=== PATIENT | male | born 1970 | race Two or more races ===

== ENCOUNTER 2017-02-05 16:36 | Inpatient (IN) | payer MEDICAID ==
[~2017-02-05] VITALS: Ht 180.3 cm; Wt 80.7 kg
--- NOTE | 2017-02-05 17:12 | NUR ---
[id number] FOR ETOH, PT STS "I HAD 1 LITR OF VODKA," PT HAS NO OTHER COMPLAINTS. PT ASSISTED TO ED BED 14, NAD. RR EVEN AND UNLABROED. PLACED ON CONT CARDIAC AND POX MOITORING. ON CONT MONITORING
[2017-02-05] MEDS ORDERED: CHLORDIAZEPOXIDE HCL 25 MG CAPSULE PO ONE (18:30)
--- NOTE | 2017-02-05 18:30 | NUR ---
DEBI PULLED FROM [id number] - PHARMACY AWARE.
[2017-02-05] MEDS ORDERED: LORAZEPAM 1 MG TABLET ONE (19:17)
[2017-02-05] MEDS ORDERED: LORAZEPAM 1 MG TABLET PO ONE (19:30)
--- NOTE | 2017-02-05 20:15 | NUR ---
Patient is resting comfortably in bed with eyes closed. Easily aroused. VSS
--- NOTE | 2017-02-05 22:20 | NUR ---
Patient is resting comfortably in bed with eyes closed. Easily aroused. VSS
[2017-02-05] MEDS ORDERED: IBUPROFEN 600 MG TABLET PO ONE ×2 (22:30→23:16)
[2017-02-05] MEDS ORDERED: LORAZEPAM INJ 2 MG/ML VIAL IVP ONE (22:30)
[2017-02-05] MEDS ORDERED: IV NS 0.9% 1,000 ML BAG IV ONE (22:30)
[2017-02-05] MEDS ORDERED: LORAZEPAM INJ 2 MG/ML VIAL ONE (23:15)
--- NOTE | 2017-02-05 23:29 | NUR ---
TEXTED DR. LANDRY FOR MRI APPROVAL.
--- NOTE | 2017-02-05 23:34 | NUR ---
MRI APPROVED BY DR. LANDRY.NO COOLER CONVEYOR LOADER AVAILABLE AFTER 10 PM.
--- NOTE | 2017-02-05 23:36 | NUR ---
CALLED RETAIL LEADER DIRECTOR OF COLLECTIONS AND ARCHIVES NO RESPONSE YET.
[2017-02-05 23:44] LABS: BASOPHILS # (AUTO) 0.1 /CMM (0.0-0.2); BASOPHILS % (AUTO) 1.3 % (0.0-2.0); EOSINOPHILS % (AUTO) 0.3 % (0.0-6.0); HEMATOCRIT 43 % (39-51); LYMPHOCYTES # (AUTO) 2.5 /CMM (0.8-4.8); LYMPHOCYTES % (AUTO) 36.1 % (20.0-44.0); MEAN CORPUSCULAR HEMOGLOBIN 32 PG (26.0-33.0); MEAN CORPUSCULAR HGB CONC 35 g/dl (31.0-36.0); MEAN CORPUSCULAR VOLUME 93 fL (80-96); MONOCYTES # (AUTO) 0.4 /CMM (0.1-1.30); MONOCYTES % (AUTO) 6.2 % (2.0-12.0); NEUTROPHILS # (AUTO) 3.9 /CMM (1.8-8.9); NEUTROPHILS % (AUTO) 56.1 % (43.0-81.0); PLATELET COUNT (AUTO) 183 /CMM (150-450); RDW COEFFICIENT OF VARIATION 12.5 (11.5-15.0); RED BLOOD CELL COUNT(AUTO) 4.68 MIL/uL (4.5-6.0); WHITE BLOOD COUNT (AUTO) 6.9 K/uL (4.3-11.0)
--- NOTE | 2017-02-05 23:47 | NUR ---
CALLED ER TOLD THEM NO TUFTER OPERATOR AVAILABE AFTER 10PM. ER AGREED TOMORROW 02/06/17 AT 8.30 AM. TEXTED TUFTER OPERATOR JOSELITO TO BE IN AT 8.30 AM. 02/06 .
[2017-02-05 23:52] LABS: INR 0.9 (0.87-1.13); PROTHROMBIN TIME 9.4 SECS (9.5-12.7)
[2017-02-06 00:06] LABS: CALCIUM, SERUM 8.3 mg/dL (8.5-10.1); CREATININE 0.7 mg/dL (0.6-1.3); POTASSIUM 3.4 mmol/L (3.5-5.1)
[2017-02-06 00:12] LABS: ALBUMIN 3.6 g/dL (3.4-5.0); BILIRUBIN,DIRECT 0.2 mg/dL (0.0-0.2); BILIRUBIN,TOTAL 0.9 mg/dL (0.2-1.0); SALICYLATE 2.2 mg/dL (2.8-20.0); TOTAL PROTEIN, SERUM 7.2 g/dL (6.4-8.2)
[2017-02-06] MEDS ORDERED: POTASSIUM CHLORIDE 20 MEQ TAB.PRT.SR PO ONE (00:30)
[2017-02-06] MEDS ORDERED: HYDROCODONE/APAP 5/325MG 1 EACH TABLET PO PRN (01:00)
[2017-02-06] MEDS ORDERED: ACETAMINOPHEN 325 MG TABLET PO PRN (01:00)
[2017-02-06] MEDS ORDERED: Z GUARD REMEDY 2 OZ OINT TP PRN (01:00)
[2017-02-06] MEDS ORDERED: ZOLPIDEM TARTRATE 5 MG TABLET PO PRN (01:00)
[2017-02-06] MEDS ORDERED: ONDANSETRON HCL/PF 4 MG/2 ML VIAL IVP PRN (01:00)
[2017-02-06] MEDS ORDERED: MAG HYDROX/AL HYDROX/SIMETH 30 ML UDC PO PRN (01:00)
[2017-02-06] MEDS ORDERED: MAGNESIUM HYDROXIDE 30 ML UDC PO PRN (01:00)
[2017-02-06 01:20] LABS: APPEARANCE,URINE CLEAR (CLEAR); BILIRUBIN,URINE NEGATIVE (NEGATIVE); BLOOD, URINE 2+ Ery/uL (NEGATIVE); COLOR,URINE YELLOW (YELLOW); KETONES,URINE NEGATIVE (NEGATIVE); LEUKOCYTE ESTERASE ,URINE NEGATIVE (NEGATIVE); NITRITE, URINE NEGATIVE (NEGATIVE); PH,URINE 5.5 (5.0-8.0); PROTEIN,URINE 2+ mg/dl (NEGATIVE); UGLUCOSE NEGATIVE (NEGATIVE); UROBILINOGEN,URINE 0.2 EU/dL (0.2)
--- NOTE | 2017-02-06 01:23 | NUR ---
TELE 310-2
[2017-02-06 01:24] LABS: BACTERIA,URINE Moderate /HPF (None Seen); WBC,URINE 0-2 /HPF (0-3)
[2017-02-06 01:25] LABS: HYALINE CASTS, URINE Few /LPF (None Seen); SQUAMOUS EPITHELIAL CELL,UR Few /HPF (None Seen)
--- NOTE | 2017-02-06 01:31 | NUR ---
REPORT GIVEN TO CHARGE NURSE, PT RN WILL BE NHAN. PT RESTING COMFORTABLY AT THIS TIME, EASILY AWAKENED TO VOICE. 18G RT AC WITH NS 1 LITER RUNNING. VSS, PT TRANSFERRED TO TELE 310 #2 VIS LUCIE ON MONITOR. ABNORMAL LABS REPORTED TO RN.
--- NOTE | 2017-02-06 02:15 | NUR ---
RN OPENING NOTES RECEIVED PATIENT IN STABLE CONDITION FROM ER. ALERT AND ORIENTED X4. PATIENT STATES "I HAD LITER OF VODKA". ALCOHOL 243. K 3.4, KDUR GIVEN IN ER. NO C/O PAIN AT THIS TIME. BS X4. RESPIRATIONS EVEN AND UNLABORED. NO SOB NOTED. TELE MONITOR IS IN PLACE, SINUS TACHYCARDIA 113 BPM. IV ACCESS ON RAC PATENT AND INTACT. FLUSHING WELL WITH NS. AWATING FOR MD ORDER. BED IN LOW AND LOCKED POSITION. SIDE RAILSX2. CALL LIGHT WITHIN EASY REACH. CONTINUE TO MONITOR AND ASSESS DURING THE SHIFT.
[2017-02-06] MEDS: LORAZEPAM INJ 2 MG/ML VIAL IV PRN ×5 (02:47→21:26)
[2017-02-06] MEDS: IV NS 0.9% 1,000 ML IV PRN ×2 (02:48→21:23)
[2017-02-06 03:00] VITALS: BP 163/113
[2017-02-06 06:29] LABS: BASOPHILS % (AUTO) 0.3 % (0.0-2.0); EOSINOPHILS % (AUTO) 0.4 % (0.0-6.0); HEMATOCRIT 42 % (39-51); HEMOGLOBIN 14.1 g/dL (13.5-17.5); LYMPHOCYTES # (AUTO) 1.5 /CMM (0.8-4.8); LYMPHOCYTES % (AUTO) 27.4 % (20.0-44.0); MEAN CORPUSCULAR HEMOGLOBIN 31 PG (26.0-33.0); MEAN CORPUSCULAR HGB CONC 34 g/dl (31.0-36.0); MEAN CORPUSCULAR VOLUME 92 fL (80-96); MONOCYTES # (AUTO) 0.4 /CMM (0.1-1.30); MONOCYTES % (AUTO) 6.6 % (2.0-12.0); NEUTROPHILS # (AUTO) 3.6 /CMM (1.8-8.9); NEUTROPHILS % (AUTO) 65.3 % (43.0-81.0); PLATELET COUNT (AUTO) 157 /CMM (150-450); RDW COEFFICIENT OF VARIATION 12.7 (11.5-15.0); RED BLOOD CELL COUNT(AUTO) 4.52 MIL/uL (4.5-6.0); WHITE BLOOD COUNT (AUTO) 5.5 K/uL (4.3-11.0)
[2017-02-06 06:33] VITALS: BP 163/113
[2017-02-06 06:41] LABS: CALCIUM, SERUM 8.3 mg/dL (8.5-10.1); CREATININE 0.7 mg/dL (0.6-1.3); POTASSIUM 3.5 mmol/L (3.5-5.1)
--- NOTE | 2017-02-06 07:05 | NUR ---
RN CLOSING NOTES PATIENT IS SLEEPING IN BED, EASY TO AROUSE. RESPIRATIONS EVEN AND UNLABORED. NO SOB NOTED. TELE MONITOR IS IN PLACE, SINUS TACHYCARDIA 111 BPM. IV ACCESS ON RAC PATENT AND INTACT, INFUSING NS AT 75 ML/HR. PICTURES TAKEN AND PLACED IN THE CHART. ALL NEEDS ARE MET AND MEDICATIONS GIVEN. BED IN LOW AND LOCKED POSITION. SIDE RAILSX2. CALL LIGHT WITHIN EASY REACH. WILL ENDORSE TO RN DAY SHIFT FOR CONTINUITY OF CARE.
--- NOTE | 2017-02-06 07:35 | NUR ---
RN OPENING NOTES RECEIVED PT. IN BED A&OX4. BREATHING UNLABORED AND EVENLY ON ROOM AIR WITHOUT SOB. NO S/S OF ACUTE DISTRESS. IV ACCESS ON RIGHT ANTECUBITAL SITE PATENT WITH NORMAL SALINE FLUSH. BED IS IN LOWEST AND LOCKED POSITION. 2 SIDE RAILS UP, AND INSTRUCTED PT. TO USE CALL LIGHT FOR ASSISTANCE. ALL NEEDS MET. WILL CONTINUE TO ASSESS AND MONITOR.
[2017-02-06 08:00] VITALS: BP 160/94
[2017-02-06] MEDS ORDERED: GADOVERSETAMIDE 2.5 MMOL/5 ML VIAL IJ ONE (10:43)
[2017-02-06] MEDS ORDERED: GADOVERSETAMIDE 5 MMOL/10 ML VIAL IJ ONE (10:43)
--- NOTE | 2017-02-06 10:56 | NUR ---
Social service consult requested by Dr. Cao for alcohol abuse. Pt. is a 46 year old male who was admitted to [facility] for altered mental status for ETOH. ANDREA met with pt. bedside. Pt. is alert and oriented x 3. Pt. appeared disheveled and his eye appeared bruised. Pt. resides with family at an apartment located at [address] [place] [address], [facility] [address] [facility] [id number]. . Pt. is unemployed and would not disclose much information. Pt. was not willing to give ANDREA an emergency contact. Pt. is an alcoholic and drinks couple of bottles of vodka per day. Pt. states, he relapsed a month ago due to family problems but would not elaborate as to what the problem was. Pt. has been to alcohol treatment program in [place] a couple of years ago. ANDREA offered pt. referrals to alcohol treatment programs both inpatient and outpatient [facility], however pt. declined the referrals. Pt. smokes a pack of cigarettes per day. Pt. denies suicidal/homicidal ideations and visual/auditory hallucinations at this time. No other social service needs are required at this time. SW is available if needed.
--- NOTE | 2017-02-06 11:11 | NUR ---
RN NOTES PT. HAS HIGH BP 192/108, P 116 BPM, NOTIFIED MD. PER MD PT. IS GOING THROUGH ETOH WITHDRAW, AND NEW ORDER WAS GIVEN FOR ATIVAN 1 MG IVP Q2HS PRN.
[2017-02-06 16:00] VITALS: BP 165/105
--- NOTE | 2017-02-06 19:30 | NUR ---
RN OPENING NOTES PATIENT IS SLEEPING IN BED, EASY TO AROUSE, ALERT AND ORIENTED X4. RESPIRATIONS EVEN AND UNLABORED. NO SOB NOTED. IV ACCESS ON RAC PATENT AND INTACT, INFUSING NS AT 75 ML/HR. NO REDNESS OR INFILTRATION NOTED. BED IN LOW AND LOCKED POSITION. SIDE RAILSX2. CALL LIGHT WITHIN EASY REACH. WILL CONTINUE TO MONITOR AND ASSESS DURING THE SHIFT.
--- NOTE | 2017-02-06 19:56 | NUR ---
RN CLOSING NOTES PT. SITTING UP IN BED A&OX4. BREATHING UNLABORED AND EVENLY ON ROOM AIR WITHOUT SOB. NO S/S OF ACUTE DISTRESS. IV ACCESS ON RIGHT ANTECUBITAL SITE PATENT WITH IV FLUIDS RUNNING AT 75 ML/HR. BED IS IN LOWEST AND LOCKED POSITION. 2 SIDE RAILS UP, AND INSTRUCTED PT. TO USE CALL LIGHT FOR ASSISTANCE. ALL NEEDS MET. WILL ENDORSE REPORT TO NURSE.
[2017-02-06 20:00] VITALS: BP 161/94
[2017-02-07] MEDS: LORAZEPAM INJ 2 MG/ML VIAL IV PRN (03:18)
--- NOTE | 2017-02-07 07:04 | NUR ---
RN CLOSING NOTES PATIENT IS SLEEPING IN BED, EASY TO AROUSE, ALERT AND ORIENTED X4. RESPIRATIONS EVEN AND UNLABORED. NO SOB NOTED. IV ACCESS ON RAC PATENT AND INTACT, INFUSING NS AT 75 ML/HR. NO REDNESS OR INFILTRATION NOTED. BED IN LOW AND LOCKED POSITION. SIDE RAILSX2. CALL LIGHT WITHIN EASY REACH. WILL ENDORSE TO RN DAY SHIFT FOR CONTINUITY OF CARE.
[2017-02-07 07:08] LABS: BASOPHILS % (AUTO) 0.6 % (0.0-2.0); EOSINOPHILS % (AUTO) 0.5 % (0.0-6.0); HEMATOCRIT 42 % (39-51); HEMOGLOBIN 14.4 g/dL (13.5-17.5); LYMPHOCYTES # (AUTO) 1.1 /CMM (0.8-4.8); LYMPHOCYTES % (AUTO) 23.4 % (20.0-44.0); MEAN CORPUSCULAR HEMOGLOBIN 32 PG (26.0-33.0); MEAN CORPUSCULAR HGB CONC 34 g/dl (31.0-36.0); MEAN CORPUSCULAR VOLUME 93 fL (80-96); MONOCYTES # (AUTO) 0.3 /CMM (0.1-1.30); MONOCYTES % (AUTO) 6.9 % (2.0-12.0); NEUTROPHILS # (AUTO) 3.1 /CMM (1.8-8.9); NEUTROPHILS % (AUTO) 68.6 % (43.0-81.0); PLATELET COUNT (AUTO) 126 /CMM (150-450); RDW COEFFICIENT OF VARIATION 13.2 (11.5-15.0); RED BLOOD CELL COUNT(AUTO) 4.56 MIL/uL (4.5-6.0); WHITE BLOOD COUNT (AUTO) 4.6 K/uL (4.3-11.0)
[2017-02-07 07:31] LABS: CALCIUM, SERUM 8.9 mg/dL (8.5-10.1); CREATININE 0.6 mg/dL (0.6-1.3); MAGNESIUM 1.7 mg/dL (1.8-2.4); PHOSPHORUS 3.3 mg/dL (2.5-4.9); POTASSIUM 3.4 mmol/L (3.5-5.1)
[2017-02-07 08:00] VITALS: BP_SYST 126; BP_SYST 168; BP_DIAS 108; BP_DIAS 70
--- NOTE | 2017-02-07 08:20 | NUR ---
MS RN RECEIVED ON BED, AWAKE,ALERT ORIENTED X4, NOT IN ANY FORM OF DISTRESS, RESPIRATIONS EVEN AND UNLABORED,NO SOB NOTED, PATIENT WANTS TO GO HOME TODAY AT THIS TIME, WILL CONSIDER AMA IF MD NOT HERE. NO DISTRESS NOTED.
--- NOTE | 2017-02-07 09:00 | NUR ---
MS MOELLER BREAKFAST SERVED, NO DUE MEDS AT THIS TIME, WILL MONITOR PATIENT.
--- NOTE | 2017-02-07 09:40 | NUR ---
MS RN WAS SEEN BY DR. ANDERSON, WILL BE GOING HOME AMA.
[2017-02-07] MEDS ORDERED: LORA1TAB82 PO (09:44)
--- NOTE | 2017-02-07 10:10 | NUR ---
ms rn patient refused to take pictures on both legs/knees for bruises, really wanted to go home.
[2017-02-07] MEDS ORDERED: POTASSIUM CHLORIDE 20 MEQ TAB.PRT.SR PO ONE (10:15)
--- NOTE | 2017-02-07 10:15 | NUR ---
ms rn refused to take the magnesium iv.rx notified.
--- NOTE | 2017-02-07 10:20 | NUR ---
MS RN WENT HOME AMA, W/ PRESCRIPTION OF ATIVAN GIVEN BY DR. ANDERSON, ALL NEEDS ATTENDED,
[2017-02-07] MEDS ORDERED: Magnesium 1GM/D5W 100ML PREMIX 100 ML IV SCH (10:45)
== END 2017-02-07 10:10 | disposition left against medical advice (07) | DRG 894 ==
LOC: ER 16:40 → TELE 02-06 01:03 → MED 02-06 10:15
PROVIDERS: ADMIT Internal Medicine; ATTEND Internal Medicine
DX: F10.129 Alcohol abuse with intoxication, unspecified (principal); E83.51 Hypocalcemia; E87.6 Hypokalemia; Y90.8 Blood alcohol level of 240 mg/100 ml or more; F17.210 Nicotine dependence, cigarettes, uncomplicated; I10 Essential (primary) hypertension; R73.9 Hyperglycemia, unspecified; Z71.6 Tobacco abuse counseling; R90.89 Other abnormal findings on diagnostic imaging of central nervous system; S00.11XA Contusion of right eyelid and periocular area, initial encounter; X58.XXXA Exposure to other specified factors, initial encounter; Y93.9 Activity, unspecified; Y92.009 Unspecified place in unspecified non-institutional (private) residence as the place of occurrence of the external cause
CPT/HCPCS: 36415; 70450-TC; 70553-TC; 80048-TC; 80076-TC; 80305; 81000-TC; 82962-TC; 83735-TC; 84100-TC; 85025-TC; 85730-TC; 87081-TC; 87086-TC; A4606; A9579; G0480; J2060; J7030; Z7610